=== PATIENT | male | born 1965 | race Two or more races ===

== ENCOUNTER 2017-03-23 10:40 | Emergency (ER) | payer SELFPAY ==
[2017-03-23 10:47] VITALS: BMI 27.3
[2017-03-23 10:49] VITALS: BP 143/76; PULSE 78; RESP 16; TEMP 98.5; O2SAT 97
--- NOTE | 2017-03-23 11:09 | ED PDOC ---
HPI: General Adult Time Seen by Provider: 03/23/17 11:01 History Per: Patient Onset/Duration Of Symptoms: Days (1) Current Symptoms Are (Timing): Still Present Severity: Mild Pain Scale Rating Of: 3 Additional Complaint(s): Sore throat, fever and cough productive clear sputum since yesterday. No SOB Past Medical History Vital Signs: Last Vital Signs Temp 98.5 F 03/23/17 10:48 Pulse 78 03/23/17 10:48 Resp 16 03/23/17 10:48 BP 143/76 03/23/17 10:48 Pulse Ox 97 03/23/17 10:48 - Medical History PMH: No Chronic Diseases - Family History Family History: States: Unknown Family Hx - Home Medications Home Medications: Ambulatory Orders Medication Instructions Recorded Naproxen [Naprosyn] 500 mg PO Q12H #20 tab 03/23/17 Oseltamivir [Tamiflu] 75 mg PO BID #10 cap 03/23/17 - Allergies Allergies/Adverse Reactions: Allergies Allergy/AdvReac Type Severity Reaction Status Date / Time Unobtainable Allergy Verified 03/23/17 11:07 Review of Systems ROS Statement: Except As Marked, All Systems Reviewed And Found Negative Constitutional: Positive for: Fever, Malaise ENT: Positive for: Throat Pain Respiratory: Positive for: Cough. Negative for: Shortness of Breath Physical Exam - Reviewed Nursing Documentation Reviewed: Yes Vital Signs Reviewed: Yes - Physical Exam Appears: Positive for: Non-toxic, No Acute Distress Head Exam: Positive for: ATRAUMATIC, NORMAL INSPECTION, NORMOCEPHALIC Skin: Positive for: Normal Color, Warm, DRY Eye Exam: Positive for: EOMI, Normal appearance, PERRL ENT: Positive for: Normal ENT Inspection Neck: Positive for: Normal, Painless ROM Cardiovascular/Chest: Positive for: Regular Rate, Rhythm Respiratory: Positive for: CNT, Normal Breath Sounds Gastrointestinal/Abdominal: Positive for: Normal Exam, Bowel Sounds, Soft Back: Positive for: Normal Inspection Extremity: Positive for: Normal ROM Neurologic/Psych: Positive for: Alert, Oriented - ECG O2 Sat by Pulse Oximetry: 97 Disposition - Clinical Impression Clinical Impression: Influenza - Patient ED Disposition Is Patient to be Admitted: No Counseled Patient/Family Regarding: Diagnosis, Need For Followup, Rx Given - Disposition Referrals: [facility] [Outside] Disposition: Routine/Home Disposition Time: 11:09 Condition: FAIR Prescriptions: Naproxen [Naprosyn] 500 mg PO Q12H #20 tab Oseltamivir [Tamiflu] 75 mg PO BID #10 cap Instructions: Flu, Adult (DC) Print Language: MACEDONIAN
== END 2017-03-23 12:17 | disposition home or self-care (01) ==
LOC: H.ER 10:40
DX: J11.1 Influenza due to unidentified influenza virus with other respiratory manifestations (principal)

== ENCOUNTER 2017-09-10 11:11 | Emergency (ER) | payer OTHER, SELFPAY ==
[2017-09-10 11:11] VITALS: BMI 27.3
[2017-09-10 11:22] VITALS: O2SAT 99
[2017-09-10 12:15] LABS: BASO # 0.1 K/uL (0.0-0.2); BASO % 0.8 % (0.0-2.0); EOS # 0.2 K/uL (0.0-0.7); EOS % 2.9 % (0.0-4.0); LYMPH # 2.2 K/uL (1.0-4.3); LYMPH % 33.5 % (20.0-40.0); MEAN CELL VOLUME 78.4 fl (80.0-94.0); MEAN CORPUSCULAR HEMOGLOBIN 25.7 pg (27.0-31.0); MEAN CORPUSCULAR HGB CONC 32.8 g/dL (33.0-37.0); MEAN PLATELET VOLUME 8.6 fl (7.2-11.7); MONO # 0.6 K/uL (0.0-0.8); MONO % 9.1 % (0.0-10.0); NEUT # 3.4 K/uL (1.8-7.0); NEUT % 53.7 % (50.0-75.0); NRBC % 0.1 % (0.0-0.0); RBC 5.07 Mil/uL (4.40-5.90); RED CELL DISTRIBUTION WIDTH 14.8 % (11.5-14.5); WHITE BLOOD COUNT 6.4 K/uL (4.8-10.8)
[2017-09-10 12:19] LABS: URINE BILIRUBIN NEGATIVE (NEGATIVE); URINE BLOOD NEGATIVE (NEGATIVE); URINE CLARITY CLEAR (Clear); URINE COLOR STRAW (YELLOW); URINE GLUCOSE (UA) NEG (Normal); URINE LEUKOCYTE ESTERASE NEG Leu/uL (Negative); URINE PROTEIN NEGATIVE (NEGATIVE); URINE UROBILINOGEN 0.2-1.0 mg/dL (0.2-1.0)
[2017-09-10 12:24] LABS: ALB/GLOB RATIO 1.3 (1.0-2.1); ALBUMIN 4.5 g/dL (3.5-5.0); ALT/SGPT 31 U/L (21-72); AST/SGOT 40 U/L (17-59); BLOOD UREA NITROGEN 16 mg/dl (9-20); GFR AFRICAN-AMERICAN > 60; GFR NON-AFRICAN AMERICAN > 60
[2017-09-10 12:46] LABS: INR 1.1; PROTHROMBIN TIME 12.3 Seconds (9.8-13.1)
[2017-09-10 12:48] LABS: PARTIAL THROMBOPLASTIN TIME 31.2 Seconds (25.6-37.1)
--- NOTE | 2017-09-10 12:59 | ED PDOC ---
HPI: General Adult Time Seen by Provider: 09/10/17 11:31 Chief Complaint (Nursing): GI Problem Chief Complaint (Provider): GI Problem History Per: Patient History/Exam Limitations: no limitations Onset/Duration Of Symptoms: Days (x 2 weeks ) Current Symptoms Are (Timing): Still Present Additional Complaint(s): 51 year old male presents to the ED with generalized weakness and bloody bowel movements for 2 weeks. Patient reports seeing blood after bowel movement upon wiping for the last 2 months. [place] was [place] and was never offered a treatment plan. He denies chest pain and shortness of breath. PMD: none provided Past Medical History Reviewed: Historical Data, Nursing Documentation, Vital Signs Vital Signs: Last Vital Signs Temp 97.8 F 09/10/17 15:17 Pulse 62 09/10/17 15:17 Resp 18 09/10/17 15:17 BP 118/64 09/10/17 15:17 Pulse Ox 99 09/16/17 23:18 - Medical History PMH: No Chronic Diseases - Surgical History Surgical History: No Surg Hx - Family History Family History: States: Unknown Family Hx - Social History Current smoker - smoking cessation education provided: No Ex-Smoker (has not smoked in the last 12 months): No Alcohol: Social Drugs: Denies - Immunization History Hx Tetanus Toxoid Vaccination: No Hx Influenza Vaccination: No Hx Pneumococcal Vaccination: No - Home Medications Home Medications: Ambulatory Orders Medication Instructions Recorded Naproxen [Naprosyn] 500 mg PO Q12H #20 tab 03/23/17 Oseltamivir [Tamiflu] 75 mg PO BID #10 cap 03/23/17 Hydrocortisone 2.5% (Rectal) 30 applic [place] BID #1 tube 09/10/17 [Anusol-HC] - Allergies Allergies/Adverse Reactions: Allergies Allergy/AdvReac Type Severity Reaction Status Date / Time No Known Allergies Allergy Verified 09/10/17 11:25 Review of Systems ROS Statement: Except As Marked, All Systems Reviewed And Found Negative Constitutional: Positive for: Weakness Cardiovascular: Negative for: Chest Pain Respiratory: Negative for: Cough, Shortness of Breath Gastrointestinal: Positive for: Hematochezia Physical Exam - Reviewed Nursing Documentation Reviewed: Yes Vital Signs Reviewed: Yes - Physical Exam Appears: Positive for: Non-toxic, No Acute Distress Head Exam: Positive for: ATRAUMATIC, NORMAL INSPECTION, NORMOCEPHALIC Skin: Positive for: Normal Color, Warm, Dry Eye Exam: Positive for: EOMI, Normal appearance, PERRL Neck: Positive for: Normal, Painless ROM, Supple Cardiovascular/Chest: Positive for: Regular Rate, Rhythm. Negative for: Murmur Respiratory: Positive for: Normal Breath Sounds. Negative for: Wheezing, Respiratory Distress Gastrointestinal/Abdominal: Positive for: Tenderness (mild LLQ). Negative for: Distended, Guarding, Rebound Rectal: Positive for: Hemorrhoids (external; non thrombosed). Negative for: Tenderness, Other (gross blood and fissures) Extremity: Positive for: Normal ROM. Negative for: Deformity Neurologic/Psych: Positive for: Alert, Oriented (x 3). Negative for: Motor/ Sensory Deficits - Laboratory Results Result Diagrams: 09/10/17 12:05 09/10/17 12:05 - ECG O2 Sat by Pulse Oximetry: 99 (RA) Pulse Ox Interpretation: Normal Medical Decision Making Medical Decision Makin Impression: generalized weakness and bloody stool Initial Plan: --Blood type and screen --CT Abd pelvis --CMP --urine dip --urine preg --CBC --PTT --Prothrombin --Occult blood --[facility] surgical services coordinator was Brit Anne. Child Development Associate Teacher ofor rectal exam was ENGRAVER RUBBERSEAN Hodge. ---- Scribe Attestation: Documented by Danay Rosario, acting as a scribe for Liana Echols MD Provider Scribe Attestation: All medical record entries made by the Scribe were at my direction and personally dictated by me. I have reviewed the chart and agree that the record accurately reflects my personal performance of the history, physical exam, medical decision making, and the department course for this patient. I have also personally directed, reviewed, and agree with the discharge instructions and disposition. Disposition - Clinical Impression Clinical Impression: Rectal bleed, Hemorrhoids - Disposition Referrals: [facility] [Outside] Erich Patel MD [Staff Provider] - Disposition: Routine/Home Disposition Time: 14:55 Condition: STABLE Additional Instructions: ANI HALEY, thank you for letting us take care of you today. Your provider was Liana Echols MD and you were treated for HEADACHE,BODY PAIN, DIZZINESS. The emergency medical care you received today was directed at your acute symptoms. If you were prescribed any medication, please fill it and take as directed. It may take several days for your symptoms to resolve. Return to the Emergency Department if your symptoms worsen, do not improve, or if you have any other problems. Please contact your doctor or call one of the physicians/clinics you have been referred to that are listed on the Patient Visit Information form that is included in your discharge packet. Bring any paperwork you were given at discharge with you along with any medications you are taking to your follow up visit. Our treatment cannot replace ongoing medical care by a primary care provider outside of the emergency department. Thank you for allowing the [facility] team to be part of your care today. If you had an X-Ray or CT scan: A Radiologist will review the ED reading if any change in treatment is needed we will contact you. If you had a blood, urine, or wound culture: It will take several days for the results, if any change in treatment is needed we will contact you. If you had an STI test: It will take 48 hours for the results. Please call after 1 week if you have not heard back. Prescriptions: Hydrocortisone 2.5% (Rectal) [Anusol-HC] 30 applic ME BID #1 tube Instructions: Hemorrhoids, Bloody Stools Forms: [employer] (Honduran) Print Language: ARABIC
[2017-09-10] MEDS ORDERED: Sodium Chloride 0.9% 50 ML IV ONE (13:07)
[2017-09-10] MEDS ORDERED: Iohexol 300 100 ML IJ ONE (13:07)
--- NOTE | 2017-09-10 14:03 | CT ---
Date of service: 09/10/2017 PROCEDURE: CT Abdomen and Pelvis with contrast HISTORY: LLQ pain, BRBPR COMPARISON: None. TECHNIQUE: Following the intravenous administration of iodinated contrast material, a CT examination of the abdomen and pelvis performed from the domes of the diaphragms to the symphysis pubis with reformatted datasets provided in axial, sagittal and coronal planes. Oral contrast was not administered as per referring physician request. Contrast dose: Omnipaque 300, 95 cc Radiation dose: Total exam DLP = 594.89 mGy-cm. This CT exam was performed using one or more of the following dose reduction techniques: Automated exposure control, adjustment of the mA and/or kV according to patient size, and/or use of iterative reconstruction technique. FINDINGS: LOWER THORAX: Unremarkable. LIVER: Diffusely diminished attenuation is seen throughout the liver compatible with hepatic steatosis. Liver is otherwise unremarkable appearing. GALLBLADDER AND BILE DUCTS: Unremarkable. PANCREAS: Unremarkable. No gross lesion or ductal dilatation. SPLEEN: Unremarkable. ADRENALS: Unremarkable. No mass. KIDNEYS AND URETERS: A small cyst is seen partially exophytic related to the medial midpole right kidney measure 1.9 cm and 9 Hounsfield units. The bilateral kidneys otherwise unremarkable. VASCULATURE: Unremarkable. No aortic aneurysm. BOWEL: Status collapse not well evaluated. The bowel is not appear obstructed. Moderate retained fecal material scattered throughout various large-bowel segments with the small bowel unremarkable. Borderline constipation pattern. Lack oral contrast limits evaluation the gastrointestinal tract throughout. Images through the rectal vault is limited due to inadequate oral contrast transit, significant collapse and the [id number] presence of retained fecal material APPENDIX: Normal appendix. PERITONEUM: Unremarkable. No free fluid. No free air. LYMPH NODES: Unremarkable. No enlarged lymph nodes. BLADDER: Unremarkable. REPRODUCTIVE: Mildly enlarged prostate gland. BONES: No acute fracture. OTHER FINDINGS: None. IMPRESSION: No acute abdominal findings including left lower quadrant anatomy. Borderline constipation pattern. In the pelvis, the rectal vault is not opacified with oral contrast material limiting evaluation as well as the presence of retained stool and partial collapse. Mural thickening is not completely excluded here and no overt perirectal reactive changes are appreciated. Further clinical correlation recommended. Hepatic steatosis. Small right renal cyst identified.
[2017-09-10 15:19] VITALS: BP 118/64; PULSE 62; RESP 18; TEMP 97.8
--- NOTE | 2017-09-10 18:16 | CARD ---
APPROVED REPORT Date of service: 09/10/2017 <Conclusion> Normal sinus rhythm Normal ECG
== END 2017-09-10 15:10 | disposition home or self-care (01) ==
LOC: H.ER 11:11
DX: K62.5 Hemorrhage of anus and rectum (principal); K64.9 Unspecified hemorrhoids
CPT/HCPCS: 74177; 80053; 81003; 85025; 85610; 85730; 86850; 86900; 93005; 99284; Q9967